=== PATIENT | female | born 1995 | race Caucasian/White ===

== ENCOUNTER 2017-07-18 10:17 | Emergency (ER) | payer MEDICAID ==
[~2017-07-18] VITALS: Ht 154.9 cm; Wt 54.0 kg
[2017-07-18 12:11] VITALS: BP 118/74
== END 2017-07-18 12:11 | disposition home or self-care (01) ==
LOC: ED 10:17
DX: R07.9 Chest pain, unspecified (principal); Z88.1 Allergy status to other antibiotic agents
CPT/HCPCS: Q0092